=== PATIENT | male | born 1970 | race Two or more races ===

== ENCOUNTER 2017-03-08 23:35 | Emergency (ER) ==
[2017-03-08] MEDS ORDERED: ASPIRIN CHEWABLE PO STA (23:37)
--- NOTE | 2017-03-08 23:45 | ED.PDOC ---
General ED Provider: Dr. ALEXANDRA PIERRE Chief Complaint: Chest Pain Stated Complaint: Been having chest pain for 1 week, left side, with SOB, today he helped some one which made the pain worse. came for the evaluation. also c/ o he is been coughing, congested, getting green sputum, hurts more on breathing. Time Seen by Physician: 23:43 Nursing and Triage Documentation Reviewed and Agree: Yes Cardiovascular Complaint Exam - Chest Pain Complaint/Exam Onset: Gradual Symptoms Are: Still present Timing: Constant Initial Severity: Moderate Current Severity: Severe Location: Reports: Left anterior, Left lateral Pain Radiates: Reports: Left shoulder Character: Reports: Tightness Aggravating: Reports: Exertion Alleviating: Reports: None Associated Signs and Symptoms: Reports: Short of air. Denies: Diaphoresis, Nausea, Vomiting, Fever, Palpitations, Cough, Hemoptysis, Back pain, Abdominal pain, Dizziness, Calf pain, Calf swelling Related History: Reports: Similar episode Related Surgical History: Reports: None AMI/ACS Risk Factors: Reports: None TAD Risk Factors: Reports: None Pulmonary Embolism Risk Factors: Reports: None Prior Care for this Complaint: No Recent Stress Test: No Recent Echo/LV Function: No JVD Present: No Subcutaneous Emphysema Present: No Diminshed Breath Sounds: No Reproducible Chest Wall Pain: Yes Bilateral Pulses Present: Yes If Risk Factors for AMI/ACS Consider: EKG, Cardiac Enzymes, Serial Studies, Oxygen, Aspirin Differential Diagnoses: ACS, Chest Wall Pain, GI Diseasae Review of Systems - Review Of Systems Constitutional: Reports: Malaise, Weakness Eyes: Reports: No symptoms Ears, Nose, Mouth, Throat: Reports: No symptoms Respiratory: Reports: No symptoms Cardiac: Reports: Chest pain GI: Reports: No symptoms : Reports: No symptoms Musculoskeletal: Reports: No symptoms Skin: Reports: No symptoms Neurological: Reports: No symptoms Endocrine: Reports: No symptoms Hematologic/Lymphatic: Reports: No symptoms All Other Systems: Reviewed and Negative Past Medical History - Past Medical History Previously Healthy: Yes Endocrine: Reports: None Cardiovascular: Reports: None Respiratory: Reports: None Hematological: Reports: None Gastrointestinal: Reports: None Genitourinary: Reports: None Neuro/Psych: Reports: None Musculoskeletal: Reports: None Cancer: Reports: None - Surgical History General Surgical History: Reports: Cholecystectomy - Family History Family History: Reports: None Physical Exam - Physical Exam Appearance: Ill-appearing, Thin Ill-appearing: Moderate Pain Distress: Moderate Eyes: [place], EOMI, Conjunctiva clear ENT: Ears normal, Nose normal, Oropharynx normal Respiratory: Airway patent, Breath sounds clear, Breath sounds equal, Respirations nonlabored Cardiovascular: RRR, Pulses normal, No rub, No murmur GI/: Soft, Nontender, No masses, Bowel sounds normal, No Organomegaly Musculoskeletal: Normal strength, ROM intact, No edema, No calf tenderness Skin: Warm, Dry, Normal color Neurological: Sensation intact, Motor intact, Reflexes intact, Cranial nerves intact, Alert, Oriented Psychiatric: Affect appropriate, Mood appropriate Interpretation - Radiology Interpretation Radiology Interpretation By: ED Physician Radiology Results: Negative Exam Interpreted: CXR Critical Care Note - Critical Care Note Total Time (mins): 0 Course - Course Hematology/Chemistry: 03/08/17 23:45 03/08/17 23:45 Orders, Labs, Meds: Lab Review 03/08/17 23:45 WBC 10.20 RBC 5.90 Hgb 17.9 Hct 50.9 MCV 86.3 MCH 30.3 MCHC 35.2 RDW Coeff of Angelo 12.2 Plt Count 330 Immature Gran % (Auto) 0.3 Neut % (Auto) 63.0 Lymph % (Auto) 25.4 [place] % (Auto) 6.7 Eos % (Auto) 4.1 Baso % (Auto) 0.5 Immature Gran # (Auto) 0.0 Neut # 6.4 Lymph # 2.6 [place]ward # 0.7 Eos # 0.4 Baso # 0.1 D-Dimer (Manual) 234.19 Sodium 139 Potassium 3.6 Chloride 102 Carbon Dioxide 26 Anion Gap 14.6 BUN 9 Creatinine 1.08 Estimated GFR (MDRD) 74.00 BUN/Creatinine Ratio 8.33 Glucose 88 Calcium 9.5 Total Bilirubin 0.43 AST 10 L ALT 26 Alkaline Phosphatase 86 Total Creatine Kinase 128 CK-MB (CK-2) 0.9 CK-MB (CK-2) % 0.73738 Troponin I < 0.0100 Total Protein 8.7 H Albumin 4.1 Globulin 4.6 Albumin/Globulin Ratio 0.89 Orders Category Date Time Status EKG-(ED ONLY) Stat CARDIO 03/08/17 23:37 Completed NEBULIZER TREATMENT Stat CARDIO 03/09/17 00:46 Completed CBC W/ AUTO DIFF Stat LAB 03/08/17 23:45 Completed COMPREHENSIVE METABOLIC PANEL Stat LAB 03/08/17 23:45 Completed CREATINE KINASE Stat LAB 03/08/17 23:45 Completed D-DIMER Stat LAB 03/08/17 23:45 Completed TROPONIN I Stat LAB 03/08/17 23:45 Completed Aspirin [Aspirin Chewable] MEDS 03/08/17 23:37 Discontinued 324 mg PO ONCE STA Dexamethasone 4 mg/ml Inj [Decadron 4 mg/ml Sdv] MEDS 03/09/17 00:46 Discontinued 4 mg IM ONCE STA Ipratropium/Albuterol Neb [Duoneb] MEDS 03/09/17 00:46 Discontinued 1 vial NEB ONCE STA Mag-Al Plus//Lidocaine [Gi Cocktail] MEDS 03/08/17 23:46 Discontinued 30 ml PO ONCE STA Sucralfate Susp [Carafate] MEDS 03/08/17 23:46 Discontinued 1 gm PO ONCE STA CHEST, 2 VIEWS PA & LAT Stat RADS 03/08/17 23:37 Taken Medications Discontinued Medications Generic Name Dose Route Start Last Admin Trade Name Khadarq PRN Reason Stop Dose Admin Al Hydroxide/Mg Hydroxide 30 ml 03/08/17 23:46 03/08/17 23:59 Gi Cocktail PO 03/08/17 23:47 30 ml ONCE STA Administration Albuterol/Ipratropium 1 vial 03/09/17 00:46 03/09/17 00:52 Duoneb NEB 03/09/17 00:47 1 vial ONCE STA Administration Aspirin 324 mg 03/08/17 23:37 03/08/17 23:58 Aspirin Chewable PO 03/08/17 23:38 324 mg ONCE STA Administration Dexamethasone Sodium Phosphate 4 mg 03/09/17 00:46 03/09/17 01:03 Decadron 4 Mg/Ml Sdv IM 03/09/17 00:47 4 mg ONCE STA Administration Sucralfate 1 gm 03/08/17 23:46 03/08/17 23:59 Carafate PO 03/08/17 23:47 1 gm ONCE STA Administration Vital Signs: Temp Pulse Resp BP Pulse Ox 03/08/17 23:35 98 F 104 H 16 120/90 95 LASHELL Risk Score LASHELL Risk Score: Risk Score Odds of by 30D 0 0.1 (0.1-0.2) 1 0.3 (0.2-0.3) 2 0.4 (0.3-0.5) 3 0.7 (0.6-0.9) 4 1.2 (1.0-1.5) 5 2.2 (1.9-2.6) 6 3.0 (2.5-3.6) 7 4.8 (3.8-6.1) Departure - Departure Time of Disposition: 01:04 Disposition: HOME SELF-CARE Discharge Problem: Chest pain, Pleurisy Instructions: Pleurisy (ED) Condition: Stable Pt referred to PMD for follow-up: Yes Additional Instructions: keflex 500 po bid x 10 days if not better come back Tylenol prn Prescriptions: Cephalexin [Keflex] 500 mg PO Q12HR #20 capsule Albuterol Sulfate [Ventolin Hfa] 18 gm IH TID #1 hfa.aer.ad Prednisone 10 mg PO BIDWM #14 tablet Allergies/Adverse Reactions: Allergies No Known Drug Allergies Adverse Reaction (Verified 03/08/17 23:51) Home Medications: Ambulatory Orders Alprazolam [Xanax] 1 mg PO TID 03/08/17 Buspirone HCl 10 mg PO DAILY 03/08/17 Lisinopril [Zestril] 40 mg PO DAILY 03/08/17 Metoprolol Tartrate [Lopressor] 50 mg PO BID 03/08/17 Paroxetine HCl [Paxil] 30 mg PO DAILY 03/08/17 Albuterol Sulfate [Ventolin Hfa] 18 gm IH TID #1 hfa.aer.ad 03/09/17 Cephalexin [Keflex] 500 mg PO Q12HR #20 capsule 03/09/17 Prednisone 10 mg PO BIDWM #14 tablet 03/09/17 Disposition Discussed With: Patient, Family
[2017-03-08] MEDS ORDERED: CARAFATE PO STA (23:46)
[2017-03-08] MEDS ORDERED: GI COCKTAIL PO STA (23:46)
[2017-03-08 23:47] LABS: BASOPHILS # (AUTO) 0.1 K/uL (0-0.2); BASOPHILS % (AUTO) 0.5 % (0.0-3.0); EOSINOPHILS # (AUTO) 0.4 K/ul (0.0-0.7); EOSINOPHILS % (AUTO) 4.1 % (0.0-7.0); HEMATOCRIT 50.9 % (42.0-52.0); HEMOGLOBIN 17.9 g/dl (14.0-18.0); IMMATURE GRANULOCYTE % (AUTO) 0.3 % (0.0-5.0); LYMPHOCYTES # (AUTO) 2.6 K/uL (0.60-3.4); LYMPHOCYTES % (AUTO) 25.4 (10.0-50.0); MEAN CORPUSCULAR HEMOGLOBIN 30.3 pg (27.0-31.0); MEAN CORPUSCULAR HGB CONC 35.2 (31.8-35.4); MEAN CORPUSCULAR VOLUME 86.3 fl (80.0-94.0); MONOCYTES # (AUTO) 0.7 K/uL (0.4-2.0); MONOCYTES % (AUTO) 6.7 (0-10); NEUTROPHILS # (AUTO) 6.4 K/ul (2.0-6.9); PLATELET COUNT 330 10^3/uL (140-440)
[2017-03-08 23:51] VITALS: BP 120/90; TEMP 98; BMI 29.2
[2017-03-09 00:23] LABS: ALANINE AMINOTRANSFERASE 26 U/L (12-78); ALBUMIN 4.1 g/dL (3.4-5.0); ALBUMIN/GLOBULIN RATIO 0.89; ALKALINE PHOSPHATASE 86 U/L (50-136); ANION GAP 14.6; ASPARTATE AMINO TRANSFERASE 10 U/L (15-37); BILIRUBIN,TOTAL 0.43 mg/dL (0.00-1.20); BLOOD UREA NITROGEN 9 mg/dL (7-18); BUN/CREATININE RATIO 8.33; CALCIUM 9.5 mg/dL (8.2-10.2); CARBON DIOXIDE 26 mmol/L (21-32); CHLORIDE 102 mmol/L (98-107); CREATINE KINASE 128 U/L; CREATININE 1.08 mg/dL (0.60-1.10); GLUCOSE 88 mg/dL (70-100); POTASSIUM 3.6 mmol/L (3.5-5.1); SODIUM 139 mmol/L (136-145); TOTAL PROTEIN 8.7 g/dL (6.4-8.2)
[2017-03-09 00:24] LABS: CREATINE KINASE MB 0.9 ng/ml (0.0-3.6)
[2017-03-09] MEDS ORDERED: DUONEB NEB STA (00:46)
[2017-03-09] MEDS ORDERED: DECADRON 4 MG/ML SDV IM STA (00:46)
--- NOTE | 2017-03-09 07:13 | DI ---
EXAM: Chest two views HISTORY: Chest pain COMPARISON: None TECHNIQUE: Two views of the chest were performed FINDINGS: The lungs are clear. There is no pleural effusion or pneumothorax. The heart is normal in size. The mediastinal contour is normal. There are no acute abnormalities of the bones. IMPRESSION: No acute cardiopulmonary process.
== END 2017-03-09 01:30 | disposition home or self-care (01) ==
LOC: ED 23:35
DX: R07.9 Chest pain, unspecified (principal); R09.1 Pleurisy; R06.02 Shortness of breath
CPT/HCPCS: 36415; 80053; 82550; 82553; 84484; 85025; 85379; 93005; 93010; 94640; 96372; 99283